=== PATIENT | female | born 1980 ===

== ENCOUNTER 2017-10-11 05:48 | Emergency (ER) | payer OTHER ==
[2017-10-11 06:00] VITALS: BMI 28.3
[2017-10-11 07:38] LABS: BASO # 0.1 K/uL (0.0-0.2); BASO % 1.6 % (0.0-2.0); EOS # 0.1 K/uL (0.0-0.7); EOS % 2.9 % (0.0-4.0); HEMOGLOBIN 12.5 g/dL (12.0-16.0); LYMPH # 1.4 K/uL (1.0-4.3); LYMPH % 31.2 % (20.0-40.0); MEAN CELL VOLUME 86.6 fl (81.0-99.0); MEAN CORPUSCULAR HGB CONC 33.5 g/dL (33.0-37.0); MEAN PLATELET VOLUME 9.1 fl (7.2-11.7); MONO # 0.3 K/uL (0.0-0.8); MONO % 7.1 % (0.0-10.0); NEUT # 2.6 K/uL (1.8-7.0); NEUT % 57.2 % (50.0-75.0); NRBC % 0.1 % (0.0-0.0); RBC 4.31 Mil/uL (3.80-5.20); RED CELL DISTRIBUTION WIDTH 14.6 % (11.5-14.5); WHITE BLOOD COUNT 4.5 K/uL (4.8-10.8)
[2017-10-11 07:46] LABS: CALCIUM 8.7 mg/dL (8.4-10.2); GFR AFRICAN-AMERICAN > 60; GFR NON-AFRICAN AMERICAN > 60; LIPASE 64 U/L (23-300)
[2017-10-11 07:48] LABS: ALB/GLOB RATIO 1.1 (1.0-2.1); ALBUMIN 4.2 g/dL (3.5-5.0); ALT/SGPT 26 U/L (9-52); AST/SGOT 58 U/L (14-36); BLOOD UREA NITROGEN 15 mg/dl (7-17)
--- NOTE | 2017-10-11 08:08 | ED PDOC ---
HPI: Abdomen Time Seen by Provider: 10/11/17 06:16 Chief Complaint (Nursing): Abdominal Pain Chief Complaint (Provider): Abdominal Pain History Per: Patient History/Exam Limitations: no limitations Onset/Duration Of Symptoms: Intermittent Episodes (x3 weeks) Current Symptoms Are (Timing): Still Present Additional Complaint(s): 37 year old female with medical history of hiatal hernia, presents to the emergency department with a complaint of intermittent left upper abdominal pain ongoing for 3 weeks. She denies any new changes in pain today, nausea, vomiting , diarrhea, fever or chills. Patient was recently treated at [facility] last week for gastritis, in which, she uses Omeprazole for relief. PMD: none provided Past Medical History Reviewed: Historical Data, Nursing Documentation, Vital Signs Vital Signs: Last Vital Signs Temp 97 F L 10/11/17 11:58 Pulse 78 10/11/17 11:58 Resp 20 10/11/17 11:58 BP 128/76 10/11/17 11:58 Pulse Ox 98 10/11/17 11:58 - Medical History PMH: Gastritis, Gastrointestinal Ulcer, Hiatal Hernia - Surgical History Surgical History: Cholecystectomy (07/22/14), Hernia Repair (umbilical) - Family History Family History: States: Unknown Family Hx - Social History Current smoker - smoking cessation education provided: No Ex-Smoker (has not smoked in the last 12 months): No Alcohol: None Drugs: Denies - Immunization History Hx Tetanus Toxoid Vaccination: No Hx Influenza Vaccination: No Hx Pneumococcal Vaccination: No - Home Medications Home Medications: Ambulatory Orders Medication Instructions Recorded Omeprazole 40 mg PO DAILY #14 capsule. 10/01/17 - Allergies Allergies/Adverse Reactions: Allergies Allergy/AdvReac Type Severity Reaction Status Date / Time No Known Allergies Allergy Verified 10/11/17 06:00 Review of Systems ROS Statement: Except As Marked, All Systems Reviewed And Found Negative Constitutional: Negative for: Fever, Chills Gastrointestinal: Positive for: Abdominal Pain (upper left). Negative for: Nausea, Vomiting, Diarrhea Physical Exam - Reviewed Nursing Documentation Reviewed: Yes Vital Signs Reviewed: Yes - Physical Exam Appears: Positive for: Non-toxic, No Acute Distress Head Exam: Positive for: ATRAUMATIC, NORMAL INSPECTION, NORMOCEPHALIC Eye Exam: Positive for: EOMI, Normal appearance, PERRL ENT: Positive for: Normal ENT Inspection. Negative for: Pharyngeal Erythema, Tonsillar Swelling Neck: Positive for: Normal, Supple Cardiovascular/Chest: Positive for: Regular Rate, Rhythm, Chest Non Tender. Negative for: Murmur Respiratory: Positive for: Normal Breath Sounds. Negative for: Wheezing, Respiratory Distress Gastrointestinal/Abdominal: Positive for: Soft, Tenderness (LUQ) Neurologic/Psych: Positive for: Alert (x3), Oriented. Negative for: Motor/ Sensory Deficits - Laboratory Results Result Diagrams: 10/11/17 07:30 10/11/17 07:30 - ECG O2 Sat by Pulse Oximetry: 100 (RA) Pulse Ox Interpretation: Normal Medical Decision Making Medical Decision Making: Initial Impression: Abdominal pain Differential Diagnosis: Gastritis; Pancreatitis; Colitis; Kidney stones Initial Plan: * CT ABD/pelvis with IV contrast * CMP * CBC * Lipase * Urine * Urine dipstick Time: 0700 --Patient is endorsed to Dr. Tiffany Majano. Awake and alert with stable vitals. Pending CT ABD results and re-evaluation. Scribe Attestation: Documented by Rima Gann, acting as a scribe for Can Anderson MD. Provider Scribe Attestation: All medical record entries made by the Scribe were at my direction and personally dictated by me. I have reviewed the chart and agree that the record accurately reflects my personal performance of the history, physical exam, medical decision making, and the department course for this patient. I have also personally directed, reviewed, and agree with the discharge instructions and disposition. Disposition - Clinical Impression Clinical Impression: Abdominal discomfort, Abdominal pain - Patient ED Disposition Is Patient to be Admitted: Transfer of Care Counseled Patient/Family Regarding: Studies Performed, Diagnosis - Disposition Referrals: [facility] [Outside] Disposition: Transfer of Care Disposition Time: 07:00 Condition: STABLE Additional Instructions: Continue omeprazole as prescribed. Instructions: Stomach Ache and Stomach Upset Forms: [employer] (Ukrainian), [facility] ED School/Work Excuse Print Language: BULGARIAN Patient Signed Over To: Tiffany Majano Handoff Comments: Pending CT results
--- NOTE | 2017-10-11 08:23 | ED PDOC ---
- Laboratory Results Result Diagrams: 10/11/17 07:30 10/11/17 07:30 - ECG O2 Sat by Pulse Oximetry: 100 (RA) Medical Decision Making Medical Decision Making: Time: 0700 --Patient was endorsed to provider by Dr. Can Andreson. Pending CT ABD/ pelvis results and re-eval. Scribe Attestation: Documented by Rima Gann, acting as a scribe for Tiffany Majano MD. Provider Scribe Attestation: All medical record entries made by the Scribe were at my direction and personally dictated by me. I have reviewed the chart and agree that the record accurately reflects my personal performance of the history, physical exam, medical decision making, and the department course for this patient. I have also personally directed, reviewed, and agree with the discharge instructions and disposition. Patient was seen at and was started on Omeprazole 40mg. She needs to followup in the [facility]. Case d/w Dr. Pappas Disposition Doctor Will See Patient In The: Office Counseled Patient/Family Regarding: Diagnosis, Need For Followup - Clinical Impression Clinical Impression: Abdominal discomfort - POA Present On Arrival: None - Disposition Referrals: [facility] [Outside] Disposition: Routine/Home Disposition Time: 11:51 Condition: STABLE Instructions: Stomach Ache and Stomach Upset Forms: [employer] (Luxembourgish) Print Language: WELSH
[2017-10-11] MEDS ORDERED: Iohexol 300 100 ML IJ ONE (09:12)
--- NOTE | 2017-10-11 09:57 | CT ---
PROCEDURE: CT Abdomen and Pelvis with contrast HISTORY: LUQ pain COMPARISON: None. TECHNIQUE: Contrast dose: 95 mL Omnipaque 300 Radiation dose: Total exam DLP = 533.6 mGy-cm. This CT exam was performed using one or more of the following dose reduction techniques: Automated exposure control, adjustment of the mA and/or kV according to patient size, and/or use of iterative reconstruction technique. FINDINGS: LOWER THORAX: Unremarkable. LIVER: Unremarkable. No gross lesion or ductal dilatation. GALLBLADDER AND BILE DUCTS: Prior cholecystectomy with surgical clips in place. PANCREAS: Unremarkable. No gross lesion or ductal dilatation. SPLEEN: Unremarkable. ADRENALS: Unremarkable. No mass. KIDNEYS AND URETERS: Unremarkable. No hydronephrosis. No solid mass. VASCULATURE: Unremarkable. No aortic aneurysm. BOWEL: Unremarkable. No obstruction. No gross mural thickening. APPENDIX: Normal appendix. PERITONEUM: Fat containing umbilical hernia/abdominal wall protrusion. No free fluid. No free air. LYMPH NODES: Unremarkable. No enlarged lymph nodes. BLADDER: Unremarkable. REPRODUCTIVE: Unremarkable. BONES: Right iliac bone enostosis. No acute fracture. OTHER FINDINGS: None. IMPRESSION: No acute abdominal pelvic pathology.
[2017-10-11 11:52] VITALS: PULSE 78
[2017-10-11 11:59] VITALS: BP 128/76; RESP 20; TEMP 97
[2017-10-13 12:04] VITALS: O2SAT 100
== END 2017-10-11 11:59 | disposition home or self-care (01) ==
LOC: H.ER 05:48
DX: R10.9 Unspecified abdominal pain (principal)
CPT/HCPCS: 74177; 80053; 81025; 83690; 85025; 99283; Q9967

== ENCOUNTER 2017-12-04 06:38 | Emergency (ER) | payer SELFPAY ==
[2017-12-04 06:38] VITALS: BMI 28.3
[2017-12-04 06:53] VITALS: BP 110/67; PULSE 60; RESP 19; TEMP 98.5; O2SAT 100
--- NOTE | 2017-12-04 07:58 | ED PDOC ---
HPI: Abdomen Time Seen by Provider: 12/04/17 07:02 Chief Complaint (Nursing): Abdominal Pain Chief Complaint (Provider): Abdominal Pain History Per: Patient History/Exam Limitations: no limitations Onset/Duration Of Symptoms: Days (x3) Current Symptoms Are (Timing): Still Present Additional Complaint(s): 37 y/o female with a pmhx of GI ulcer, gastritis, and hiatal hernia presenting for evaluation of LUQ pain x3 days which has been intermittent for 1 year. This is patient's 3rd visit for same. Patient denies taking anything for pain. She also denies fever, nausea, vomiting, diarrhea, and dysuria. She reports pain is worse when she stands or walks. Patient had CT 10/11/2017 that was negative. Patient was seen and evaluated at [facility] on 12/02/2017 and given a fecal test with a follow up for the early December. Past Medical History Reviewed: Historical Data, Nursing Documentation, Vital Signs Vital Signs: Last Vital Signs Temp 98.5 F 12/04/17 06:49 Pulse 60 12/04/17 06:49 Resp 19 12/04/17 06:49 BP 110/67 12/04/17 06:49 Pulse Ox 100 12/04/17 08:01 - Medical History PMH: Gastritis, Gastrointestinal Ulcer, Hiatal Hernia - Surgical History Surgical History: Cholecystectomy (07/22/14), Hernia Repair (umbilical) - Family History Family History: States: Unknown Family Hx - Immunization History Hx Tetanus Toxoid Vaccination: No Hx Influenza Vaccination: No Hx Pneumococcal Vaccination: No - Home Medications Home Medications: Ambulatory Orders Medication Instructions Recorded No Known Home Med 12/04/17 - Allergies Allergies/Adverse Reactions: Allergies Allergy/AdvReac Type Severity Reaction Status Date / Time No Known Allergies Allergy Verified 12/04/17 06:53 Review of Systems ROS Statement: Except As Marked, All Systems Reviewed And Found Negative Constitutional: Negative for: Fever Gastrointestinal: Positive for: Abdominal Pain (LUQ). Negative for: Nausea, Vomiting, Diarrhea Genitourinary Female: Negative for: Dysuria Physical Exam - Reviewed Nursing Documentation Reviewed: Yes Vital Signs Reviewed: Yes - Physical Exam Appears: Positive for: Non-toxic, No Acute Distress Head Exam: Positive for: ATRAUMATIC, NORMAL INSPECTION, NORMOCEPHALIC Skin: Positive for: Normal Color, Warm, Dry. Negative for: Rash Eye Exam: Positive for: EOMI, Normal appearance, PERRL Neck: Positive for: Normal, Painless ROM, Supple Cardiovascular/Chest: Positive for: Regular Rate, Rhythm. Negative for: Murmur Respiratory: Positive for: Normal Breath Sounds. Negative for: Respiratory Distress Gastrointestinal/Abdominal: Positive for: Tenderness (LUQ). Negative for: Guarding, Rebound Back: Positive for: Normal Inspection. Negative for: L CVA Tenderness, R CVA Tenderness, Vertebral Tenderness Extremity: Positive for: Normal ROM. Negative for: Pedal Edema, Deformity Neurologic/Psych: Positive for: Alert, Oriented. Negative for: Motor/Sensory Deficits - Laboratory Results Result Diagrams: 12/04/17 08:07 12/04/17 08:07 - ECG O2 Sat by Pulse Oximetry: 100 (RA) Pulse Ox Interpretation: Normal Medical Decision Making Medical Decision Making: Initial Impression: Acute on chronic abdominal pain Plan: --CMP --Urine --Urine dipstick --CBC --Reevaluation 08:55 Pt states she wants to be discharged, screaming in hallway. Scribe Attestation: Documented by Zaire Le, acting as a scribe for Arlyn Ramsey MD. Provider Scribe Attestation: All medical record entries made by the Scribe were at my direction and personally dictated by me. I have reviewed the chart and agree that the record accurately reflects my personal performance of the history, physical exam, medical decision making, and the department course for this patient. I have also personally directed, reviewed, and agree with the discharge instructions and disposition. Disposition - Clinical Impression Clinical Impression: Chronic abdominal pain - Disposition Referrals: [facility] [Outside] Pratibha Agustin MD [Medical Doctor] - Disposition: Routine/Home Disposition Time: 08:57 Condition: STABLE Instructions: Acute Abdomen (Belly Pain) Forms: [employer] (Occitan) Print Language: ESTONIAN
[2017-12-04 08:12] LABS: BASO # 0.1 K/uL (0.0-0.2); BASO % 1.2 % (0.0-2.0); EOS # 0.1 K/uL (0.0-0.7); EOS % 2.3 % (0.0-4.0); HEMOGLOBIN 12.8 g/dL (12.0-16.0); LYMPH # 1.6 K/uL (1.0-4.3); LYMPH % 26.6 % (20.0-40.0); MEAN CELL VOLUME 85.5 fl (81.0-99.0); MEAN CORPUSCULAR HEMOGLOBIN 29.5 pg (27.0-31.0); MEAN CORPUSCULAR HGB CONC 34.5 g/dL (33.0-37.0); MONO # 0.3 K/uL (0.0-0.8); MONO % 5.5 % (0.0-10.0); NEUT # 3.9 K/uL (1.8-7.0); NEUT % 64.4 % (50.0-75.0); NRBC % 0.1 % (0.0-0.0); RBC 4.34 Mil/uL (3.80-5.20); RED CELL DISTRIBUTION WIDTH 14.6 % (11.5-14.5)
[2017-12-04 08:27] LABS: ALB/GLOB RATIO 1.2 (1.0-2.1); ALBUMIN 4.1 g/dL (3.5-5.0); ALT/SGPT 25 U/L (9-52); AST/SGOT 24 U/L (14-36); BLOOD UREA NITROGEN 14 mg/dl (7-17); CALCIUM 8.9 mg/dL (8.4-10.2); GFR AFRICAN-AMERICAN > 60; GFR NON-AFRICAN AMERICAN > 60
== END 2017-12-04 09:01 | disposition home or self-care (01) ==
LOC: H.ER 06:38
DX: R10.9 Unspecified abdominal pain (principal); G89.29 Other chronic pain